=== PATIENT | male | born 1950 | race Caucasian/White ===

== ENCOUNTER 2018-07-29 10:01 | Emergency (ER) | payer OTHER ==
[~2018-07-29] VITALS: Ht 185.4 cm; Wt 104.3 kg
[2018-07-29 10:13] VITALS: BP 146/93
[2018-07-29] MEDS ORDERED: KETOROLAC TROMETH 60MG/2ML VIAL IM ONE (11:30)
[2018-07-29] MEDS ORDERED: methylPREDNISolone SOD SUCC 125 MG/2 ML VL IM ONE (11:30)
== END 2018-07-29 12:19 | disposition home or self-care (01) ==
LOC: ER 10:06
DX: M51.37 Other intervertebral disc degeneration, lumbosacral region (principal); M54.16 Radiculopathy, lumbar region
CPT/HCPCS: 72100; 96372; 99283; J1885; J2930